=== PATIENT | male | born 1940 | race Caucasian/White ===

== ENCOUNTER 2020-11-13 10:08 | Outpatient (CLI) | payer MEDICARE ==
[2020-11-13 11:37] LABS: Hemoglobin 13.3 g/dL (13.5-17.5); Mean Corpuscular Hemoglobin 28.6 pg (27.0-33.0); Mean Corpuscular Volume 86.7 fl (81.2-95.1); Platelet Count 147 10x3/uL (150-450); RBC Distribution Width 13.2 % (11.5-14.5); Red Blood Cell (RBC) Count 4.65 10x6/uL (4.32-5.72); White Blood Cell (WBC) Count 6.8 10x3/uL (3.5-10.5)
[2020-11-13 11:51] LABS: Anion Gap 12 mmol/L (10-20); BUN (Urea Nitrogen) 22 mg/dL (8.4-25.7); Calc. Creatinine Clearance 0 mL/min (70-130); Calcium 9.1 mg/dL (7.8-10.44); Carbon Dioxide 27 mmol/L (23-31); Chloride 97 mmol/L (98-107); Glucose 160 mg/dL (83-110); Sodium 132 mmol/L (136-145)
[2020-11-13 18:31] LABS: SARS-CoV-2 PCR by NAA Not Detected (NotDetected)
== END 2020-11-13 10:09 | disposition home or self-care (01) ==
LOC: CSHLAB 10:08
PROVIDERS: ATTEND Otolaryngology Plastic Surgery within the Head & Neck
DX: Z01.818 Encounter for other preprocedural examination (principal); Z20.822 Contact with and (suspected) exposure to COVID-19
CPT/HCPCS: 80048; 85027; 87635; 93005; 93010; U0003; U0005